=== PATIENT | female | born 1955 | race Caucasian/White ===

== ENCOUNTER 2020-11-27 05:53 | Emergency (ER) | payer MEDICAID ==
[~2020-11-27] VITALS: Ht 160 cm; Wt 79.4 kg
[2020-11-27 05:56] VITALS: BP_SYST 199
[2020-11-27] MEDS ORDERED: MORPHINE 4 MG INJ. 4 MG/ML VIAL IM ONE (06:30)
[2020-11-27] MEDS ORDERED: ONDANSETRON 4 MG ODT TAB PO ONE (06:30)
[2020-11-27] MEDS ORDERED: NAPR-688 PO (06:56)
[2020-11-27] MEDS ORDERED: SOM350 PO (06:56)
[2020-11-27] MEDS ORDERED: TRAM50TA PO (06:56)
[2020-11-27 07:59] VITALS: BP_SYST 172
== END 2020-11-27 07:59 | disposition home or self-care (01) ==
LOC: SED 05:53
DX: M54.32 Sciatica, left side (principal); I10 Essential (primary) hypertension; Z79.899 Other long term (current) drug therapy; E78.00 Pure hypercholesterolemia, unspecified
CPT/HCPCS: 96372; 99283; J2270; Q0162